=== PATIENT | male | born 1975 | race Hispanic/Latino ===

== ENCOUNTER 2022-03-05 09:45 | Emergency (ER) | payer SELFPAY ==
[~2022-03-05] VITALS: Ht 175.3 cm; Wt 99.8 kg
== END 2022-03-05 11:20 | disposition home or self-care (01) ==
LOC: ER 10:26
DX: R10.31 Right lower quadrant pain (principal); K40.90 Unilateral inguinal hernia, without obstruction or gangrene, not specified as recurrent; I10 Essential (primary) hypertension
CPT/HCPCS: 99282

== ENCOUNTER 2022-12-30 08:04 | Emergency (ER) | payer SELFPAY ==
[~2022-12-30] VITALS: Ht 175.3 cm; Wt 99.8 kg
[2022-12-30 08:06] VITALS: O2SAT 99
== END 2022-12-30 08:28 | disposition home or self-care (01) ==
LOC: ER 08:10
DX: K40.90 Unilateral inguinal hernia, without obstruction or gangrene, not specified as recurrent (principal); I10 Essential (primary) hypertension
CPT/HCPCS: 99282

== ENCOUNTER 2024-04-16 01:38 | Emergency (ER) | payer OTHER ==
[~2024-04-16] VITALS: Ht 175.3 cm; Wt 99.8 kg
[2024-04-16 01:48] VITALS: PULSE 113; RESP 18; TEMP 98.8
[2024-04-16 03:32] VITALS: BP 137/89; PULSE 81; RESP 18; TEMP 98.2; O2SAT 99
== END 2024-04-16 03:33 | disposition home or self-care (01) ==
LOC: ER 01:42
DX: R10.31 Right lower quadrant pain (principal); K40.30 Unilateral inguinal hernia, with obstruction, without gangrene, not specified as recurrent; I10 Essential (primary) hypertension
CPT/HCPCS: 74176; 99283